=== PATIENT | female | born 1995 | race Caucasian/White ===

== ENCOUNTER → 2018-04-07 | Outpatient (REF) | payer BC | LOC: M SFHCLERA 11:58 | PROVIDERS: ATTEND Physician Assistant | DX: R50.9 Fever, unspecified (principal) ==

== ENCOUNTER → 2019-04-18 | Outpatient (REF) | payer BC | LOC: M SFHCLERA 17:51 | PROVIDERS: ATTEND Physician Assistant | DX: J02.9 Acute pharyngitis, unspecified (principal) ==

== ENCOUNTER → 2020-06-16 | Outpatient (REF) | payer BC | LOC: M PLALAB 13:51 | PROVIDERS: ATTEND Advanced Practice Midwife | DX: O20.0 Threatened abortion (principal) ==

== ENCOUNTER → 2020-07-11 | Outpatient (CLI) | payer BC | LOC: M LABSMTC 12:37 | PROVIDERS: ATTEND Anesthesiology | DX: Z20.828 Contact with and (suspected) exposure to other viral communicable diseases (principal); Z11.59 Encounter for screening for other viral diseases ==

== ENCOUNTER → 2021-03-05 | Outpatient (CLI) | payer BC, OTHER ==
[~2021-03-05] MED LIST: DOXY-443 PO; TRI-TAB16 PO
== END ==
LOC: M EKG 09:46
PROVIDERS: ATTEND Nurse Practitioner Women's Health
DX: O24.311 Unspecified pre-existing diabetes mellitus in pregnancy, first trimester (principal); Z3A.09 9 weeks gestation of pregnancy; E11.9 Type 2 diabetes mellitus without complications

== ENCOUNTER 2021-05-03 13:06 | Emergency (ER) | payer BC, OTHER ==
[~2021-05-03] VITALS: Ht 167.6 cm; Wt 103.6 kg
[2021-05-03 13:36] LABS: APPEARANCE, URINE CLOUDY (CLEAR); BACTERIA, URINE AUTO 3+ (NEGATIVE); BILIRUBIN, URINE AUTO NEGATIVE (NEGATIVE); BLOOD, URINE BLOOD 3+ (NEGATIVE); COLOR, URINE AMBER (YELLOW); GLUCOSE, URINE (UA) AUTO NEGATIVE (NEGATIVE); KETONE, URINE AUTO NEGATIVE (NEGATIVE); LEUKOCYTE ESTERASE, URINE AUTO 3+ (NEGATIVE); NITRITE, URINE AUTO NEGATIVE (NEGATIVE); PROTEIN, URINE AUTO 2+ mg/dL (NEGATIVE); RBC, URINE AUTO TNTC /HPF (0-3); SPECIFIC GRAVITY URINE AUTO 1.017 (1.002-1.035); SQUAMOUS EPITHELIAL CELL UR AU 27 /HPF (0-6); UROBILINOGEN, URINE AUTO 0.2 mg/dL (0.0-2.0); WBC, URINE AUTO TNTC /HPF (0-3)
[2021-05-03] MEDS ORDERED: NITROFURANTOIN (MACROBID) 100 MG CAP PO ONE (14:00)
[2021-05-03] MEDS ORDERED: MACR100C43 PO (14:02)
[2021-05-03 14:08] VITALS: BP 140/83
== END 2021-05-03 14:14 | disposition home or self-care (01) ==
LOC: M ED 13:06
DX: O23.42 Unspecified infection of urinary tract in pregnancy, second trimester (principal); R30.0 Dysuria; E11.9 Type 2 diabetes mellitus without complications; Z79.4 Long term (current) use of insulin; Z3A.19 19 weeks gestation of pregnancy

== ENCOUNTER 2022-03-02 21:05 | Emergency (ER) | payer OTHER ==
[~2022-03-02] VITALS: Ht 165.1 cm; Wt 102.0 kg
[~2022-03-02 21:05] MED LIST changes: +ACET-907 PO; +ASPI81CH33 PO; +COLA100C5 PO; +IBUP80TA PO; +MACR100C43 PO; +OXYC-517 PO; +PRENTAB9 PO
[2022-03-02 21:06] VITALS: BP 135/89
[2022-03-02 23:57] LABS: URINE PREG TEST NEGATIVE (NEGATIVE)
== END 2022-03-03 01:18 | disposition left against medical advice (07) ==
LOC: M ED 21:05
DX: Z53.21 Procedure and treatment not carried out due to patient leaving prior to being seen by health care provider (principal)

== ENCOUNTER 2023-02-10 08:50 | Outpatient (CLI) | payer OTHER ==
[~2023-02-10] VITALS: Ht 165.1 cm; Wt 117.0 kg
[~2023-02-10 08:50] MED LIST changes: +ALBUTEROL SULFATE 2.5MG/0.5ML INH NEB SOLN INH PRN; +EPINEPHrine INJ 1 MG/ML 1ML AMP IM PRN; +NS 1,000 ML IV SCH; +diphenhydrAMINE 50MG/ML VIAL IV PRN; +methylPREDNISolone 125MG 2ML VIAL IV PRN
[2023-02-10 08:58] VITALS: BP 137/67; O2SAT 98
[2023-02-10] MEDS ORDERED: IRON SUCROSE 300 MG in NS 250 ML OVER 90 MIN. IV ONE (09:00)
[2023-02-10 10:52] VITALS: BP 126/70; O2SAT 98
== END 2023-02-10 10:53 | disposition home or self-care (01) ==
LOC: M INFU 08:50
PROVIDERS: ATTEND Obstetrics & Gynecology
DX: D50.9 Iron deficiency anemia, unspecified (principal)
CPT/HCPCS: 96365; 96366; J1756

== ENCOUNTER 2023-02-11 07:30 | Inpatient (IN) | payer OTHER ==
[~2023-02-11] VITALS: Ht 165.1 cm; Wt 122.3 kg
[~2023-02-11 07:30] MED LIST changes: -ALBUTEROL SULFATE 2.5MG/0.5ML INH NEB SOLN INH PRN; -EPINEPHrine INJ 1 MG/ML 1ML AMP IM PRN; -NS 1,000 ML IV SCH; -diphenhydrAMINE 50MG/ML VIAL IV PRN; -methylPREDNISolone 125MG 2ML VIAL IV PRN
[2023-03-04] MEDS ORDERED: ASPI81CH33 PO (09:37)
[2023-03-04] MEDS ORDERED: CETI5TAB2 PO (09:37)
[2023-03-10] MEDS ORDERED: ALLE10TA62 PO (12:34)
[2023-03-15] VITALS (9 sets, daily range): BP systolic 104–122; BP diastolic 55–69; TEMP 97.6; O2SAT 96–100
[2023-03-15] MEDS ORDERED: ceFAZolin SOD 3 GM IV Place Holder IV ONE (05:45)
[2023-03-15] MEDS ORDERED: LR 1,000 ML IV SCH (05:45)
[2023-03-15] MEDS ORDERED: LACTATED RINGER'S 1000 ML IV STA (05:45)
[2023-03-15] MEDS ORDERED: BICITRA 30ML SOLN UDC PO ONE ×2 (05:45→05:55)
[2023-03-15] MEDS ORDERED: ceFAZolin SOD 2 GM in IV 1 EA IV ONE (05:55)
[2023-03-15] MEDS ORDERED: ceFAZolin SOD 1 GM in D5W MINI-BAG PLUS 50 ML IV ONE (05:55)
[2023-03-15 06:32] LABS: HEMATOCRIT 37.3 % (36.0-47.0); HEMOGLOBIN 12.2 g/dl (12.0-15.5); MEAN CORPUSCULAR HEMOGLOBIN 27.7 pg (27.0-33.0); MEAN CORPUSCULAR HGB CONC 32.7 g/dl (32.0-36.5); MEAN CORPUSCULAR VOLUME 84.8 fl (80.0-96.0); PLATELET COUNT, AUTOMATED 153 10^3/uL (150-450)
[2023-03-15] MEDS ORDERED: MORPHINE PRES-FREE INJ 10 MG/10 ML VIAL As Ordered ONE (07:43)
[2023-03-15] MEDS ORDERED: KETOROLAC 60MG 2ML VIAL As Ordered ONE (07:43)
[2023-03-15] MEDS ORDERED: OXYTOCIN INJ 10UNITS/ML 1ML VIAL As Ordered ONE ×2 (07:43→08:54)
[2023-03-15] MEDS ORDERED: ONDANSETRON 4MG 2ML VIAL As Ordered ONE (07:43)
[2023-03-15] MEDS ORDERED: PHENYLEPHRINE 10MG/ML 1ML VIAL As Ordered ONE (07:45)
[2023-03-15] MEDS ORDERED: **NOTE PATIENT COMMENT** MISC XX SCH (09:40)
[2023-03-15] MEDS: SLF 3 ML SYR IV SCH ×2 (09:40→17:24)
[2023-03-15] MEDS ORDERED: METOCLOPRAMIDE INJ 10MG/2ML VIAL IV PRN (09:40)
[2023-03-15] MEDS ORDERED: ONDANSETRON 4MG 2ML VIAL IV PRN (09:40)
[2023-03-15] MEDS ORDERED: fentaNYL 100 MCG/2 ML INJECTION IV PRN (09:40)
[2023-03-15] MEDS ORDERED: diphenhydrAMINE 50MG/ML VIAL IV PRN (09:40)
[2023-03-15] MEDS ORDERED: NALOXONE INJ 0.4MG/1ML VIAL IV PRN ×2 (09:40)
[2023-03-15] MEDS ORDERED: OXYTOCIN 30UNITS IN 0.9% NaCl 500ML IV BAG As Ordered ONE (10:06)
[2023-03-15] MEDS ORDERED: RHOGAM 300MCG (1500IU) INJ IM SCH (10:15)
[2023-03-15] MEDS ORDERED: oxyCODONE 5MG TAB PO PRN ×2 (10:15)
[2023-03-15] MEDS ORDERED: MOM 30ML SUSPENSION UDC PO PRN (10:15)
[2023-03-15] MEDS ORDERED: SIMETHICONE 80MG CHEW TAB PO PRN (10:15)
[2023-03-15] MEDS: LR 1,000 ML IV SCH ×2 (10:50→14:49)
[2023-03-15] MEDS ORDERED: LR 500 ML IV ONE ×2 (14:05→18:15)
[2023-03-15] MEDS: KETOROLAC 30 MG/ML 1ML VIAL IV SCH ×2 (15:38→21:01)
[2023-03-15] MEDS ORDERED: ONDANSETRON 4MG 2ML VIAL IV ONE (18:15)
[2023-03-15] MEDS: DOCUSATE SODIUM 100MG CAPSULE PO SCH (21:01)
[2023-03-15] MEDS ORDERED: LR 1,000 ML IV ONE (21:25)
[2023-03-16] MEDS: SLF 3 ML SYR IV SCH (01:40)
[2023-03-16 02:00] VITALS: BP 110/66
[2023-03-16] MEDS: LR 1,000 ML IV SCH (02:35)
[2023-03-16] MEDS: KETOROLAC 30 MG/ML 1ML VIAL IV SCH (02:50)
[2023-03-16 05:56] VITALS: BP 103/55
[2023-03-16 07:49] LABS: HEMATOCRIT 30.7 % (36.0-47.0); MEAN CORPUSCULAR HEMOGLOBIN 27.2 pg (27.0-33.0); MEAN CORPUSCULAR HGB CONC 31.9 g/dl (32.0-36.5); MEAN CORPUSCULAR VOLUME 85.3 fl (80.0-96.0); PLATELET COUNT, AUTOMATED 138 10^3/uL (150-450); WHITE BLOOD COUNT 9.5 10^3/uL (4.0-10.0)
[2023-03-16 07:58] LABS: HEMOGLOBIN 9.8 g/dl (12.0-15.5)
[2023-03-16] MEDS: PRENATAL VITAMINS CHEWABLE TABLET PO SCH (08:08)
[2023-03-16] MEDS: DOCUSATE SODIUM 100MG CAPSULE PO SCH ×2 (08:08→21:05)
[2023-03-16] MEDS: ACETAMINOPHEN 500 MG TAB PO PRN ×2 (08:16→21:45)
[2023-03-16 10:00] VITALS: BP 104/51; O2SAT 97
[2023-03-16] MEDS: IBUPROFEN 800 MG TAB PO SCH ×2 (11:08→18:07)
[2023-03-16 14:00] VITALS: BP 112/60; O2SAT 98
[2023-03-16 17:49] VITALS: BP 115/56; O2SAT 98
[2023-03-16 22:00] VITALS: BP 111/59; O2SAT 98
[2023-03-17] MEDS: IBUPROFEN 800 MG TAB PO SCH ×2 (03:02→11:47)
[2023-03-17 06:00] VITALS: BP 107/59; O2SAT 99
[2023-03-17] MEDS: DOCUSATE SODIUM 100MG CAPSULE PO SCH (08:53)
[2023-03-17] MEDS: PRENATAL VITAMINS CHEWABLE TABLET PO SCH (08:53)
[2023-03-17] MEDS ORDERED: MEASLES,MUMPS,RUBELLA VACCINE INJ (MMR-II) SC.IMMUN ONE (09:00)
[2023-03-17 10:00] VITALS: BP 124/71; O2SAT 98
== END 2023-03-17 13:40 | disposition home or self-care (01) | DRG 772 ==
LOC: M LDI 03-15 05:24 → M OBS 03-15 11:14
PROVIDERS: ADMIT Obstetrics & Gynecology; ATTEND Obstetrics & Gynecology
PROC: 10D00Z1 Extraction of Products of Conception, Low, Open Approach (ICD-10-PCS; principal; 2023-03-15 07:30)
DX: O34.211 Maternal care for low transverse scar from previous cesarean delivery (principal); Z68.41 Body mass index [BMI] 40.0-44.9, adult; O99.824 Streptococcus B carrier state complicating childbirth; Z37.0 Single live birth; E66.9 Obesity, unspecified; O99.214 Obesity complicating childbirth; Z3A.39 39 weeks gestation of pregnancy

== ENCOUNTER 2023-02-18 11:00 | Outpatient (CLI) | payer OTHER ==
[~2023-02-18] VITALS: Ht 165.1 cm; Wt 118.0 kg
[2023-02-18 11:00] VITALS: BP 143/64; O2SAT 97
[~2023-02-18 11:00] MED LIST changes: +ALBUTEROL SULFATE 2.5MG/0.5ML INH NEB SOLN INH PRN; +EPINEPHrine INJ 1 MG/ML 1ML AMP IM PRN; +IRON SUCROSE 300 MG in NS 250 ML OVER 90 MIN. IV ONE; +NS 1,000 ML IV SCH; +diphenhydrAMINE 50MG/ML VIAL IV PRN; +methylPREDNISolone 125MG 2ML VIAL IV PRN
[2023-02-18 13:13] VITALS: BP 119/63; O2SAT 97
== END 2023-02-18 13:15 | disposition home or self-care (01) ==
LOC: M INFU 11:00
PROVIDERS: ATTEND Obstetrics & Gynecology
DX: D50.9 Iron deficiency anemia, unspecified (principal)
CPT/HCPCS: 96365; 96366; J1756

== ENCOUNTER 2023-02-24 09:51 | Outpatient (CLI) | payer OTHER ==
[~2023-02-24] VITALS: Ht 165.1 cm; Wt 118.0 kg
[~2023-02-24 09:51] MED LIST changes: -IRON SUCROSE 300 MG in NS 250 ML OVER 90 MIN. IV ONE; -NS 1,000 ML IV SCH
[2023-02-24 09:56] VITALS: BP 127/65; O2SAT 100
[2023-02-24] MEDS ORDERED: IRON SUCROSE 300 MG in NS 250 ML OVER 90 MIN. IV ONE (10:00)
[2023-02-24] MEDS ORDERED: NS 1,000 ML IV SCH (10:00)
[2023-02-24 12:11] VITALS: BP 120/58; O2SAT 98
== END 2023-02-24 12:13 | disposition home or self-care (01) ==
LOC: M INFU 09:51
PROVIDERS: ATTEND Obstetrics & Gynecology
DX: D50.9 Iron deficiency anemia, unspecified (principal)
CPT/HCPCS: 96365; 96366; J1756

== ENCOUNTER 2023-03-04 09:20 | Outpatient (CLI) | payer OTHER ==
[~2023-03-04] VITALS: Ht 165.1 cm; Wt 120.4 kg
[~2023-03-04 09:20] MED LIST changes: -ALBUTEROL SULFATE 2.5MG/0.5ML INH NEB SOLN INH PRN; -EPINEPHrine INJ 1 MG/ML 1ML AMP IM PRN; -diphenhydrAMINE 50MG/ML VIAL IV PRN; -methylPREDNISolone 125MG 2ML VIAL IV PRN
[2023-03-04 09:31] VITALS: BP 121/74
[2023-03-04] MEDS ORDERED: CETI5TAB2 PO (09:37)
[2023-03-04] MEDS ORDERED: ASPI81CH33 PO (09:37)
== END 2023-03-04 10:12 | disposition home or self-care (01) ==
LOC: M LDO 09:20
PROVIDERS: ATTEND Advanced Practice Midwife
DX: O9A.213 Injury, poisoning and certain other consequences of external causes complicating pregnancy, third trimester (principal); Z3A.37 37 weeks gestation of pregnancy; V40.5XXA Car driver injured in collision with pedestrian or animal in traffic accident, initial encounter
CPT/HCPCS: 59025; G0463